=== PATIENT | female | born 1945 | race Caucasian/White ===

== ENCOUNTER 2020-08-25 09:25 | Emergency (ER) | payer OTHER, MEDICARE ==
[2020-08-25 10:05] LABS: BASOPHIL 0.5 % (0-2); EOSINOPHIL 0.3 % (0-7); HCT 40.6 % (37.0-47.0); HGB 13.2 g/dl (12.5-16.0); MCH 35.1 pg (25.0-31.0); MCHC 32.5 g/dL (32.0-36.0); MONOCYTE 4.6 % (0-12); MPV 10.3 fL (6.0-9.5); NEUTROPHIL 81.1 % (41-80); NRBC 0; PLT 175 K/uL (150-400); RBC 3.76 M/uL (4.20-5.40); RDW 15.5 % (11.5-14.0)
[2020-08-25 10:15] LABS: INR 1.07 (0.9-1.2); PROTHROMBIN TIME 13.2 SECONDS (11.4-13.6); PTT 31.1 SECONDS (22.2-34.7)
[2020-08-25 10:20] LABS: ALBUMIN 3.4 g/dL (3.4-5.0); BILIRUBIN - TOTAL 0.6 mg/dL (0.2-1.0); GLOBULIN (CALCULATION) 3.8 g/dL; POTASSIUM 4.4 mmol/L (3.5-5.1); TOTAL PROTEIN 7.2 g/dL (6.4-8.2)
== END 2020-08-25 11:11 | disposition other institution (70) ==
LOC: FER 09:25
PROVIDERS: Emergency Medicine
DX: S22.088A Other fracture of T11-T12 vertebra, initial encounter for closed fracture (principal); M54.5 Low back pain; F17.210 Nicotine dependence, cigarettes, uncomplicated; Z79.891 Long term (current) use of opiate analgesic; V49.40XA Driver injured in collision with unspecified motor vehicles in traffic accident, initial encounter; Y92.410 Unspecified street and highway as the place of occurrence of the external cause
CPT/HCPCS: 36415; 72128; 72131; 80053; 85025; 85610; 85730; J1170; J2405; J7030